=== PATIENT | female | born 1995 | race Asian ===

== ENCOUNTER 2016-11-04 14:47 | Emergency (ER) | payer MEDICAID ==
--- NOTE | 2016-11-04 15:20 | ED Physician Chart ---
Chief Complaint/HPI - Patient Information Date Seen:: 11/04/16 Time Seen:: 15:05 Chief Complaint:: congestion History of Present Illness:: onset x 2 days of congestion, dry cough, frontal sinus regional H/As, fever, and S/T; no C/P, SOB, Abd pain, A/N/V/D/C, chills; no E/As; pt is eating and urinating well; pt last urinated one hour [employer] Allergies:: Allergies Allergy/AdvReac Type Severity Reaction Status Date / Time No Known Allergies Allergy Verified 11/04/16 15:04 Vitals:: Vital Signs - 8 hr 11/04/16 15:05 Temp 98.3 F HR 103 RR 23 BP 162/74 O2 Sat % 98 Historian:: Patient, Family Member Review:: Nurse's Note Reviewed Review of Systems - Review of Systems General/Constitutional: Fever, No fever, No chills, No weight loss, No weakness , No diaphoresis, No edema, No loss of appetite Skin: No skin lesions, No rash, No bruising Head: Headache, No headache, No light-headedness Eyes: No loss of vision, No pain, No diplopia ENT: No earache, Nasal drainage, No nasal drainage, Sore throat, No sore throat , No tinnitus Neck: No neck pain, No swelling, No thyromegaly, No stiffness, No mass noted Cardio Vascular: No chest pain, No palpitations, No PND, No orthopnea, No edema Pulmonary: No SOB, Cough, No cough, No sputum, No wheezing GI: No nausea, No vomiting, No diarrhea, No pain, No melena, No hematochezia, No constipation, No hematemesis G/U: No dysuria, No frequency, No hematuria Musculoskeletal: No bone or joint pain, No back pain, No muscle pain Endocrine: No polyuria, No polydipsia Psychiatric: No prior psych history, No depression, No anxiety, No suicidal ideation Hematopoietic: No bruising, No lymphadenopathy Allergic/Immuno: No urticaria, No angioedema Neurological: No syncope, No focal symptoms, No weakness, No paresthesia, No headache, No seizure, No dizziness, No confusion, No vertigo Past Medical History - Past Medical History Past Medical History: No significant medical hx Family Medical History - Family Member Mother History Unknown: Yes Physical Exam - Physical Examination General/Constitutional: Awake, Well-developed, well-nourished, Alert, No distress, GCS 15, Non-toxic appearing, Ambulatory Head: Atraumatic Eyes: Lids, conjuctiva normal, PERRL, EOMI Skin: Nl inspection, No rash, No skin lesions, No ecchymosis, Well hydrated, No lymphadenopathy ENMT: External ears, nose nl, Nasal exam nl, Lips, teeth, gums nl Other ENMT comments:: Pharynx: injected; no exudates; + Frontal Sinus Regional Tenderness; + Nasal Congestion Neck: Nontender, Full ROM w/o pain, No JVD, No nuchal rigidity, No bruit, No mass, No stridor Respiratory: Nl effort/Exclusion, Clear to Auscultation, No Wheeze/Rhonchi/Rales Cardio Vascular: RRR, No murmur, gallop, rubs, NL S1 S2 GI: No tenderness/rebounding/guarding, No organomegaly, No hernia, Normal BS's, Nondistended, No mass/bruits, No McBurney tenderness : No CVA tenderness Extremities: No tenderness or effusion, Full ROM, normal strength in all extremities, No edema, Normal digits & nails Neuro/Psych: Alert/oriented, DTR's symmetric, Normal sensory exam, Normal motor strength, Judgement/insight normal, Mood normal, Normal gait, No focal deficits Misc: normal gait, Normal back, No paraspinal tenderness ED Septic Shock - . Is Septic Shock (SBP<90, OR Lactate>4 mmol\L) present?: No - <6hrs of presentation: Vital Signs: Vital Signs - 8 hr 11/04/16 15:05 Temp 98.3 F HR 103 RR 23 BP 162/74 O2 Sat % 98 Assessment of Lungs: Lung CTA bilateral, Ventilator, Decreased BS, Rhonchi, No Rhonchi, Rales, No Rales, Wheezing, No Wheezing, Stridor, No Stridor, Other, Documented in PE Assessment of Heart: RRR, Thrill, No thrill, Gallops, No Gallops, S3, S4, Rub, No Rub, Murmur, No Murmur, Other, Documented in PE Capillary refill evaluation: Capillary refill < 2 secs, Capillary refill > 2 secs, Other, Documented in PE Skin Exam: Warm, Dry, Good Turgur, Poor Turgor, Pallor, No Pallor, Diaphoretic, No Diaphoresis, Mottled, No Mottling, Cyanotic, Edema, No Edema, Erythema, No Erythema, Other, Documented in PE Reassessment (Disposition) - Reassessment Reassessment Condition:: Improved - Diagnosis Diagnosis:: Phayngitis; Sinusitis; Sinus Headaches; Fever; Bronchitis; URI - Aftercare/Follow up Instructions Aftercare/Follow-Up Instructions:: Counseled pt regarding lab results/diagnosis & need follow up, Refer to Discharge Instructions, Counseled pt & family regarding lab results/diagnosis & need follow up Medication Prescribed:: Rx: Amoxicillin; Tylenol; Cool Mist Vaporizer: Take as prescribed - Patient Disposition Discharge/Transfer:: Home Condition at Disposition:: Stable, Improved (ACIs given for all above Dx; refer to ENT/Neurologist/Stable Manager HENNY; F/U with PMD in one day or prn; RTER prn if concerned)
== END 2016-11-04 15:15 | disposition home or self-care (01) ==
LOC: ER 14:47
DX: J02.9 Acute pharyngitis, unspecified (principal); J32.8 Other chronic sinusitis; J40 Bronchitis, not specified as acute or chronic; J06.9 Acute upper respiratory infection, unspecified
CPT/HCPCS: Z7502

== ENCOUNTER 2016-12-29 18:26 | Emergency (ER) | payer MEDICAID ==
[2016-12-29 18:46] VITALS: BP 120/77
--- NOTE | 2016-12-29 20:04 | ED Physician Chart ---
Chief Complaint/HPI - Patient Information Date Seen:: 12/29/16 Time Seen:: 18:45 Chief Complaint:: headache History of Present Illness:: 21-year-old female, otherwise healthy, complains of acute, worsening, constant, moderate, generalized headache 2 days. Has associated runny nose and sore throat. Allergies:: Allergies Allergy/AdvReac Type Severity Reaction Status Date / Time No Known Allergies Allergy Verified 11/04/16 15:04 Vitals:: Vital Signs - 8 hr 12/29/16 12/29/16 18:45 18:46 Temp 98.5 F HR 110 RR 16 BP 120/77 120/77 O2 Sat % 98 Historian:: Patient Review:: Nurse's Note Reviewed Review of Systems - Review of Systems Other: Complete system review otherwise unremarkable except as noted in HPI. Past Medical History - Past Medical History Past Medical History: No significant medical hx Family History: None Social History: Non Smoker, No Alcohol, No Drug Use, Surgical History: None Psychiatricy History: None Medication: None Family Medical History - Family Member Mother Ethnicity: Non- Living Status: Unknown Hx Family Cancer: No Hx Family Coronary Artery Disease: No Hx Family Congestive Heart Failure: No Hx Family Hypertension: No Hx Family Diabetes: No Hx Family Seizures: No Hx Family AIDS: No Hx Family COPD: No Hx Family Psychiatric Problems: No Physical Exam - Physical Examination Other:: INITIAL VITAL SIGNS: Reviewed by me GENERAL: Alert and interactive. No acute distress HEAD: Head is normocephalic and atraumatic EYES: EOMI. . No scleral icterus. No conjunctival injection ENT: Tonsils are +1 edematous with slight exudate. NECK: Supple. Bilateral cervical adenopathy. Full range of motion RESPIRATORY: No tachypnea. Clear breath sounds bilaterally. No wheezing, rales, or rhonchi CV: Regular rate and rhythm. No murmurs, rubs, or gallops ABDOMEN: Soft, non-distended, non-tender. No guarding. No rebound. No masses. EXTREMITIES: No deformity. No cyanosis. No edema. SKIN: Warm and dry. No obvious rashes. NEUROLOGIC: Alert and oriented. Face is symmetric. Speech is normal. Moves all extremities equally. Motor and sensory distally intact. Labs/Radiology/EKG Results - Lab Results Results: Lab Results 12/29/16 12/29/1617 Range/Units 20:15 20:15 20:22 WBC 14.4 H (4.8-10.8) Th/cmm RBC 5.66 H (3.80-5.10) Mil/cmm Hgb 14.0 (11.7-15.5) gm/dL Hct 41.5 (35.0-45.0) % MCV 73.3 L (81-100) fl MCH 24.7 L (27.0-31.0) pg MCHC Differential 33.6 (28.0-36.0) pg RDW 12.9 (11.5-20.0) % Plt Count 323 (150-400) Th/cmm MPV 8.3 fl Neutrophils (Manual) 76 (40-80) % Lymphocytes 18 L (20-50) % Monocytes 5 (2-10) % Eosinophils 1 (0-5) % Platelet Estimate ADEQUATE (NORMAL) Platelet Morphology NORMAL (NORMAL) Anisocytosis 1+ Microcytosis 2+ RBC Morph Micro Appear ABNORMAL (NORMAL) PT (9.5-11.5) SECONDS INR (0.5-1.4) PTT (Actin FS) (26.0-38.0) SECONDS Sodium (136-145) mEq/L Potassium (3.5-5.1) mEq/L Chloride (98-107) mEq/L Carbon Dioxide (21.0-31.0) mEq/L Anion Gap (7.0-16.0) BUN (7-25) mg/dL Creatinine (0.6-1.2) mg/dL Est GFR ( Amer) (>90) ml/min Est GFR (Non-Af Amer) ml/min BUN/Creatinine Ratio Glucose (70-105) mg/dL Whole Bld Lactic Acid (0.60-1.99) mmol/L Calcium (8.6-10.3) mg/dL Total Bilirubin (0.3-1.0) mg/dL AST (13-39) U/L ALT (7-52) U/L Alkaline Phosphatase (34-104) U/L Total Protein (6.0-8.3) gm/dL Albumin (3.7-5.3) gm/dL Globulin gm/dL Albumin/Globulin Ratio (1.0-1.8) Urine Source CLEAN C Urine Color YELLOW Urine Clarity HAZY (CLEAR) Urine pH 7.0 Ur Specific [place] 1.020 (1.005-1.030) Urine Protein 30 H (NEGATIVE) mg/dL Urine Glucose (UA) NEGATIVE (NEGATIVE) mg/dL Urine Ketones NEGATIVE (NEGATIVE) mg/dL Urine Blood MODERATE H (NEGATIVE) Urine Nitrate NEGATIVE (NEGATIVE) Urine Bilirubin NEGATIVE (NEGATIVE) Urine Urobilinogen 0.2 (0.2 - 1.0) E.U./dL Ur Leukocyte Esterase NEGATIVE (NEGATIVE) Urine RBC 25-50 H (0-5) /hpf Urine WBC 0-2 (0-5) /hpf Ur Epithelial Cells MANY (FEW) /lpf Urine Bacteria FEW (NONE SEEN) /hpf Urine Test NEGATIVE 12/29/16 12/29/16 12/29/16 Range/Units 20:22 20:22 20:22 WBC (4.8-10.8) Th/cmm RBC (3.80-5.10) Mil/cmm Hgb (11.7-15.5) gm/dL Hct (35.0-45.0) % MCV (81-100) fl MCH (27.0-31.0) pg MCHC Differential (28.0-36.0) pg RDW (11.5-20.0) % Plt Count (150-400) Th/cmm MPV fl Neutrophils (Manual) (40-80) % Lymphocytes (20-50) % Monocytes (2-10) % Eosinophils (0-5) % Platelet Estimate (NORMAL) Platelet Morphology (NORMAL) Anisocytosis Microcytosis RBC Morph Micro Appear (NORMAL) PT 9.8 (9.5-11.5) SECONDS INR 0.94 (0.5-1.4) PTT (Actin FS) 28.5 (26.0-38.0) SECONDS Sodium 135 L (136-145) mEq/L Potassium 3.2 L (3.5-5.1) mEq/L Chloride 103 (98-107) mEq/L Carbon Dioxide 24.3 (21.0-31.0) mEq/L Anion Gap 10.9 (7.0-16.0) BUN 10 (7-25) mg/dL Creatinine 0.6 (0.6-1.2) mg/dL Est GFR ( Amer) > 60.0 (>90) ml/min Est GFR (Non-Af Amer) > 60.0 ml/min BUN/Creatinine Ratio 16.7 Glucose 98 (70-105) mg/dL Whole Bld Lactic Acid 1.51 (0.60-1.99) mmol/L Calcium 9.8 (8.6-10.3) mg/dL Total Bilirubin 0.5 (0.3-1.0) mg/dL AST 15 (13-39) U/L ALT 19 (7-52) U/L Alkaline Phosphatase 56 (34-104) U/L Total Protein 8.4 H (6.0-8.3) gm/dL Albumin 4.4 (3.7-5.3) gm/dL Globulin 4.0 gm/dL Albumin/Globulin Ratio 1.1 (1.0-1.8) Urine Source Urine Color Urine Clarity (CLEAR) Urine pH Ur Specific [place] (1.005-1.030) Urine Protein (NEGATIVE) mg/dL Urine Glucose (UA) (NEGATIVE) mg/dL Urine Ketones (NEGATIVE) mg/dL Urine Blood (NEGATIVE) Urine Nitrate (NEGATIVE) Urine Bilirubin (NEGATIVE) Urine Urobilinogen (0.2 - 1.0) E.U./dL Ur Leukocyte Esterase (NEGATIVE) Urine RBC (0-5) /hpf Urine WBC (0-5) /hpf Ur Epithelial Cells (FEW) /lpf Urine Bacteria (NONE SEEN) /hpf Urine Test ED Septic Shock - . Is Septic Shock (SBP<90, OR Lactate>4 mmol\L) present?: No - <6hrs of presentation: Vital Signs: Vital Signs - 8 hr 12/29/16 12/29/16 18:45 18:46 Temp 98.5 F HR 110 RR 16 BP 120/77 120/77 O2 Sat % 98 Reassessment (Disposition) - Reassessment Reassessment:: Patient appears to have pharyngitis. Also has a migraine headache. Received Compazine, Toradol, Decadron, normal saline, through the IV. Symptoms greatly improved. Prescribed amoxicillin and prednisone and Phenergan with codeine cough syrup. Reassessment Condition:: Improved - Diagnosis Diagnosis:: Pharyngitis - Aftercare/Follow up Instructions Aftercare/Follow-Up Instructions:: Counseled pt regarding lab results/diagnosis & need follow up, Refer to Discharge Instructions Medication Prescribed:: Azithromycin Ibuprofen - Patient Disposition Discharge/Transfer:: Home Time:: 21:07 Condition at Disposition:: Improved ED Discharge Plan - Patient Disposition Admit/Discharge/Transfer: PT DISCHARGED HOME Condition at Disposition: Improved Instructions: Viral and Bacterial Pharyngitis
[2016-12-29] MEDS ORDERED: Prochlorperazine 5 mg/mL 2mL Vial IVP STA (20:05)
[2016-12-29] MEDS ORDERED: Sodium Chloride 0.9% 1,000 ML IV ONE (20:05)
[2016-12-29] MEDS ORDERED: Dexamethasone Sodium Phos 4 mg/mL Vial IVP STA (20:05)
[2016-12-29] MEDS ORDERED: Codeine/Promethazine Susp 5 mL UDC PO STA (20:06)
[2016-12-29] MEDS ORDERED: Dexamethasone Sodium Phos 10 mg/mL PF Vial ONE (20:25)
[2016-12-29] MEDS ORDERED: Prochlorperazine 5 mg/mL 2mL Vial ONE (20:26)
[2016-12-29 20:33] LABS: HEMATOCRIT 41.5 % (35.0-45.0); MEAN CELL VOLUME 73.3 fl (81-100); MEAN CORPUSCULAR HEMOGLOBIN 24.7 pg (27.0-31.0); MEAN CORPUSCULAR HGB CONC 33.6 pg (28.0-36.0); MEAN PLATELET VOLUME 8.3 fl; PLATELET COUNT 323 Th/cmm (150-400); RED BLOOD COUNT 5.66 Mil/cmm (3.80-5.10); RED CELL DISTRIBUTION WIDTH 12.9 % (11.5-20.0); WHITE BLOOD COUNT 14.4 Th/cmm (4.8-10.8)
[2016-12-29] MEDS ORDERED: Codeine/Promethazine Susp 5 mL UDC ONE (20:35)
[2016-12-29 20:43] LABS: INR 0.94 (0.5-1.4); PROTHROMBIN TIME (TEST) 9.8 SECONDS (9.5-11.5)
[2016-12-29 20:47] LABS: ALB/GLOB RATIO 1.1 (1.0-1.8); ALKALINE PHOSPHATASE 56 U/L (34-104); ANION GAP 10.9 (7.0-16.0); BILIRUBIN,TOTAL 0.5 mg/dL (0.3-1.0); BUN - UREA NITROGEN 10 mg/dL (7-25); BUN/CREATININE RATIO 16.7; CALCIUM SERUM 9.8 mg/dL (8.6-10.3); CARBON DIOXIDE 24.3 mEq/L (21.0-31.0); CHLORIDE 103 mEq/L (98-107); CREATININE - SERUM 0.6 mg/dL (0.6-1.2); GLUCOSE 98 mg/dL (70-105); POTASSIUM SERUM 3.2 mEq/L (3.5-5.1); SGOT 15 U/L (13-39); SGPT/ALT 19 U/L (7-52); SODIUM SERUM 135 mEq/L (136-145)
[2016-12-29 20:48] LABS: URINE COLOR YELLOW
[2016-12-29 20:49] LABS: URINE BACTERIA FEW /hpf (NONE SEEN); URINE BILIRUBIN NEGATIVE (NEGATIVE); URINE BLOOD MODERATE (NEGATIVE); URINE EPITHELIAL CELLS MANY /lpf (FEW); URINE GLUCOSE (UA) NEGATIVE (NEGATIVE); URINE KETONE NEGATIVE (NEGATIVE); URINE PROTEIN 30 mg/dL (NEGATIVE); URINE RBC 25-50 /hpf (0-5); URINE UROBILINOGEN 0.2 E.U./dL (0.2 - 1.0); URINE WBC 0-2 /hpf (0-5)
[2016-12-29 20:58] LABS: ANISOCYTOSIS 1+; EOSINOPHIL 1 % (0-5); MICROCYTOSIS 2+; NEUTROPHILS 76 % (40-80); PLATELET ESTIMATE ADEQUATE (NORMAL); PLATELET MORPHOLOGY NORMAL (NORMAL); TOTAL CELLS COUNTED 100
== END 2016-12-29 21:30 | disposition home or self-care (01) ==
LOC: ER 18:26
DX: J02.9 Acute pharyngitis, unspecified (principal)
CPT/HCPCS: 99284; 96374; 96375; 36415; 83605; 87804 ×2; 85007; 85027; 85610; 81001; 81025; 80053; 87040 ×2; J1885; J0780; J7030; Z7502

== ENCOUNTER 2018-12-15 18:03 | Emergency (ER) | payer MEDICAID ==
[2018-12-15] MEDS ORDERED: Acetaminophen 500 MG TAB PO ONE (19:49)
[2018-12-15] MEDS ORDERED: Acetaminophen 500 MG TAB ONE (19:52)
--- NOTE | 2018-12-15 21:34 | ED Physician Chart ---
ED Chief Complaint/HPI - Patient Information Date Seen:: 12/15/18 Time Seen:: 19:30 Chief Complaint:: cough sore throat Allergies:: Allergies Allergy/AdvReac Type Severity Reaction Status Date / Time No Known Allergies Allergy Verified 12/15/18 19:28 Vitals:: Vital Signs - 8 hr 12/15/18 19:15 Temp 102.5 F HR 125 RR 20 BP 107/53 O2 Sat % 97 Review:: Nurse's Note Reviewed (language barrier) ED Review of Systems - Review of Systems General/Constitutional: Fever, Weakness Skin: No skin lesions Head: Headache (frontal no sign mennigitis) Eyes: No loss of vision ENT: Nasal drainage Neck: No neck pain Cardio Vascular: No chest pain Pulmonary: Cough GI: No vomiting Musculoskeletal: Bone or joint pain Psychiatric: No prior psych history Hematopoietic: No bruising Allergic/Immuno: No urticaria Neurological: No syncope ED Past Medical History - Past Medical History Past Medical History: No significant medical hx Family History: None Social History: No Drug Use Psychiatricy History: None Family Medical History - Family Member Mother History Unknown: Yes Ethnicity: Non- Living Status: Unknown Hx Family Cancer: No Hx Family Coronary Artery Disease: No Hx Family Congestive Heart Failure: No Hx Family Hypertension: No Hx Family Diabetes: No Hx Family Seizures: No Hx Family AIDS: No Hx Family COPD: No Hx Family Psychiatric Problems: No ED Physical Exam - Physical Examination General/Constitutional: Awake, Alert, Non-toxic appearing, Ambulatory Head: Atraumatic Eyes: Lids, conjuctiva normal Skin: No rash ENMT: External ears, nose nl, TM canals nl Other ENMT comments:: pharangeal erythema Neck: Full ROM w/o pain, No JVD, No nuchal rigidity, No stridor Other Neck comments:: adequate movement air Respiratory: Clear to Auscultation (equivocal musical rales) Cardio Vascular: RRR, No murmur, gallop, rubs GI: No tenderness/rebounding/guarding : No CVA tenderness Extremities: Full ROM Neuro/Psych: Alert/oriented, Normal sensory exam, Normal motor strength, Judgement/insight normal, Mood normal, Normal gait ED Labs/Radiology/EKG Results - Lab Results Results: pharangitis equivocal subacute sinusitis ED Assessment - Assessment General Assessment: mucoid smell exhalation ED Septic Shock - . Is Septic Shock (SBP<90, OR Lactate>4 mmol\L) present?: No - <6hrs of presentation: Vital Signs: Vital Signs - 8 hr 12/15/18 19:15 Temp 102.5 F HR 125 RR 20 BP 107/53 O2 Sat % 97 ED Reassessment (Disposition) - Reassessment Reassessment Condition:: Improved (tylenol 1000 given rx vibramycin 100bid x 1 week) - Aftercare/Follow up Instructions Aftercare/Follow-Up Instructions:: Counseled pt regarding lab results/diagnosis & need follow up Medication Prescribed:: tylenol 500 5x/day robitussin dm cough plus vibramycin 100 bid cough with FOOD - Patient Disposition Discharge/Transfer:: Home
== END 2018-12-15 20:20 | disposition home or self-care (01) ==
LOC: ER 18:03
DX: J02.9 Acute pharyngitis, unspecified (principal); J01.80 Other acute sinusitis
CPT/HCPCS: Z7502; Z7610